=== PATIENT | female | born 1955 | race Hispanic/Latino ===

== ENCOUNTER → 2019-05-07 | Outpatient (RCR) | payer MEDICARE ==
[~2019-05-07] MED LIST: ASPIRIN; PREVACID; SYNTHROID; TRAMADOL
== END ==
LOC: PT 04-28 13:00
PROVIDERS: ATTEND Orthopaedic Surgery
DX: M17.11 Unilateral primary osteoarthritis, right knee (principal); Z47.1 Aftercare following joint replacement surgery; M25.561 Pain in right knee; M25.661 Stiffness of right knee, not elsewhere classified; R26.2 Difficulty in walking, not elsewhere classified

== ENCOUNTER 2019-06-05 10:51 | Outpatient (RCR) | payer MEDICARE | END 2019-06-07 | LOC: PT 10:51 | PROVIDERS: ATTEND Orthopaedic Surgery | DX: Z96.651 Presence of right artificial knee joint (principal); Z47.1 Aftercare following joint replacement surgery; M17.11 Unilateral primary osteoarthritis, right knee; M25.561 Pain in right knee; M25.661 Stiffness of right knee, not elsewhere classified; R26.2 Difficulty in walking, not elsewhere classified ==

== ENCOUNTER 2019-07-04 11:00 | Outpatient (RCR) | payer MEDICARE | END 2019-07-07 | LOC: PT 11:00 | PROVIDERS: ATTEND Orthopaedic Surgery | DX: Z96.651 Presence of right artificial knee joint (principal); M17.11 Unilateral primary osteoarthritis, right knee ==

== ENCOUNTER 2019-07-18 12:55 | Outpatient (RCR) | payer MEDICARE | END 2019-08-07 | LOC: PT 12:55 | PROVIDERS: ATTEND Orthopaedic Surgery | DX: Z96.651 Presence of right artificial knee joint (principal); Z47.1 Aftercare following joint replacement surgery; M25.561 Pain in right knee ==